=== PATIENT | female | born 1965 | race Caucasian/White ===

== ENCOUNTER 2017-03-22 14:26 | Emergency (ER) | payer MEDICARE | END 2017-03-22 15:30 | disposition home or self-care (01) | LOC: SCSER 14:26 | DX: H57.12 Ocular pain, left eye (principal); G43.909 Migraine, unspecified, not intractable, without status migrainosus; E03.9 Hypothyroidism, unspecified; I10 Essential (primary) hypertension; Z87.442 Personal history of urinary calculi; Z79.899 Other long term (current) drug therapy | CPT/HCPCS: 99283 ==

== ENCOUNTER 2024-04-22 12:57 | Inpatient (IN) | payer SELFPAY ==
[~2024-04-22 12:57] MED LIST: Iopamidol-370 76% 500 ML MDV (1 ML CHARGE) ONE
[2024-04-22] MEDS ORDERED: Midazolam HCl 2 mg/2 ml Vial ONE ×2 (13:17→16:39)
[2024-04-22] MEDS ORDERED: levETIRAcetam 500 MG (5 mL) VIAL ONE (13:17)
[2024-04-22] MEDS ORDERED: Propofol 1,000 MG/100 ML VIAL IV ONE (13:28)
[2024-04-22 13:52] LABS: #Basophils 0.09 10x3/uL (0.0-0.2); %Basophils 0.6 % (0.0-1.0); %Eosinophils 2.5 % (0.0-10.0); %Lymphocytes 59.8 % (21.0-51.0); %Neutrophils 27.8 % (42.0-75.0); Hemoglobin 11.4 g/dL (12.0-16.0); Mean Corpuscular Hemoglobin 28.7 pg (27.0-31.0); Mean Corpuscular Volume 95.7 fL (78.0-98.0); Platelet Count 321 10x3/uL (130-400); RBC Distribution Width 12.5 % (11.5-14.5); Red Blood Cell (RBC) Count 3.97 mill/uL (4.20-5.40)
[2024-04-22] MEDS ORDERED: fentaNYL 50 mcg/mL 1 mL Vial ONE (14:07)
[2024-04-22 14:08] LABS: ALT (SGPT) 7 U/L (Less than 34); AST (SGOT) 22 U/L (11-34); Albumin 3.7 g/dL (3.1-4.5); Alkaline Phosphatase 66 U/L (40-110); Anion Gap 23 mmol/L (10-20); BUN (Urea Nitrogen) 11 mg/dL (9.8-20.1); Bilirubin, Total 0.4 mg/dL (0.3-1.2); CK (CPK) 42 U/L (29-168); Calc. Creatinine Clearance 0 mL/min (70-130); Calcium 8.7 mg/dL (7.8-10.44); Carbon Dioxide 17 mmol/L (22-29); Chloride 106 mmol/L (98-107); Estimated GFR 56; Globulin 4.1 g/dL (2.4-3.5); Glucose 84 mg/dL (70-105); Lipase 20 U/L (8-78); Potassium 3.8 mmol/L (3.5-5.1); Protein, Total 7.8 g/dL (6.0-8.3); Sodium 142 mmol/L (136-145)
[2024-04-22 14:13] LABS: Actual Bicarbonate (HCO3v) 19.5 mEq/L (22-28); Analyzer IN Cardio ER; Base Excess -5.4 mEq/L (-2.0 to +3.0); Calcium, Ionized (venous) 1.06 mmol/L (1.16-1.32); Chloride (VBG) 103 mmol/L (98-106); Hematocrit-VBG 30 % (36.0-47.0); Hemoglobin (Hb) 10.3 g/dL (11.7-16.0); Potassium (VBG) 3.65 mmol/L (3.70-5.30); Sodium 137 mmol/L (133-146); pH (venous) 7.355 (7.32-7.43)
[2024-04-22 14:14] LABS: Troponin I Less than 0.010 ng/mL (< 0.028)
[2024-04-22 14:28] LABS: PTT 30.1 sec (22.9-36.1); Prothrombin Time 13.5 sec (12.0-14.7)
[2024-04-22] MEDS ORDERED: Fentanyl CADD 100 ML IV SCH (14:45)
[2024-04-22 15:33] LABS: Amphetamine Not Detected (NotDetected); Barbiturates Screen Detected (NotDetected); Benzodiazepine Screen Not Detected (NotDetected); Cocaine Metabolite Screen Not Detected (NotDetected); Methadone Not Detected (NotDetected); Methamphetamine Not Detected (NotDetected); Opiate Screen Detected (NotDetected); Oxycodone Screen Not Detected (NotDetected); Phencyclidine (PCP) Detected (NotDetected); THC/Cannabinoid Screen Detected (NotDetected); Tricyclic Screen Detected (NotDetected)
[2024-04-22 15:35] LABS: Bacteria/HPF None Seen HPF (None Seen); Bilirubin Negative (Negative); Blood, Urine Negative (Negative); CAUTI Indications for Culture Alt mental st,lethar; Clarity Clear (Clear); Glucose, Urine (Dipstick) Normal (Negative); Ketone, Urine Negative (Negative); Leukocyte Negative Leu/uL (Negative); Nitrite 2+ (Negative); Protein, Urine (Dipstick) 20 mg/dL (Neg-Trace); RBC/HPF 0-3 HPF (0-3); Squamous Epithelial 0-3 HPF (0-3); Urobilinogen Normal mg/dL (Less than 2); WBC/HPF 0-3 HPF (0-3); pH, Urine 6.5 (5.0-9.0)
[2024-04-22 15:39] LABS: Specific Gravity, Urine Greater than 1.060 (1.002-1.036)
[2024-04-22 15:42] LABS: Urine Culture Reflex No No
[2024-04-22] MEDS ORDERED: cefTRIAXone (ROCEPHIN) 2 GM VIAL ONE (16:08)
[2024-04-22] MEDS ORDERED: Sodium Chloride 0.9% 100 ML ONE (16:08)
[2024-04-22] MEDS ORDERED: Dextrose 5% in Water 1,000 ML IV PRN (16:15)
[2024-04-22] MEDS ORDERED: Ondansetron PF 4 MG/2 ML Vial IVP PRN (16:15)
[2024-04-22] MEDS ORDERED: Dextrose 50% Abboject 50 ML SYRINGE SLOW IVP PRN (16:15)
[2024-04-22] MEDS ORDERED: Glucagon 1 MG/ML KIT IM PRN (16:15)
[2024-04-22] MEDS: Lorazepam 2 MG/ML VIAL SLOW IVP PRN (17:00)
[2024-04-22] MEDS: Sodium Chloride 0.9% 1,000 ML IV SCH ×2 (17:24→18:16)
[2024-04-22] MEDS ORDERED: Propofol 1,000 MG/100 ML VIAL IV PRN (17:30)
[2024-04-22] MEDS ORDERED: Morphine 2 MG/ML VIAL SLOW IVP PRN (17:30)
[2024-04-22] MEDS ORDERED: Propofol BOLUS 1,000 MG/100 ML VIAL IV PRN (17:30)
[2024-04-22] MEDS ORDERED: Fentanyl BOLUS 250 ML IVPB PRN (17:30)
[2024-04-22] MEDS ORDERED: DISCONTINUE PREVIOUS NARCOTIC PAIN MEDICATIONS AND BENZODIAZEPINES FS SCH (17:30)
[2024-04-22 17:36] VITALS: BMI 18.7
[2024-04-22 18:20] LABS: Lactic Acid 2.57 mmol/L (0.50-2.20)
[2024-04-22] MEDS: levETIRAcetam 500 MG (5 mL) VIAL SLOW IVP SCH (21:17)
[2024-04-22 21:44] LABS: Actual Bicarbonate (HCO3a) 18.2 mEq/L (22-28); Base Excess (BEa) -5.4 mEq/L (-2.0 to +3.0); CO2 Tension 28.4 mmHg (35.0-45.0); Calcium, Ionized (arterial) 1.02 mmol/L (1.12-1.30); Carboxyhemoglobin (COHb) 0.4 gm% (0.0-3.0); Hematocrit-ABG 25 % (36.0-47.0); Hemoglobin (Hb) 8.4 g/dL (12.0-16.0); O2 Tension (PaO2), arterial 204.7 mmHg (80.0-100.0); Potassium - ABG Lab 2.98 mmol/L (3.70-5.30); pH, Arterial 7.424 (7.35-7.45)
[2024-04-22 21:45] LABS: Puncture Site Left Radial artery
[2024-04-23] MEDS: Fentanyl CADD 100 ML IV SCH (03:35)
[2024-04-23 05:03] LABS: Anion Gap 12 mmol/L (10-20); BUN (Urea Nitrogen) 9 mg/dL (9.8-20.1); Calc. Creatinine Clearance 75 mL/min (70-130); Carbon Dioxide 14 mmol/L (22-29); Chloride 116 mmol/L (98-107); Estimated GFR 102; Glucose 83 mg/dL (70-105); Sodium 139 mmol/L (136-145)
[2024-04-23 07:28] LABS: #Basophils 0.09 10x3/uL (0.0-0.2); %Basophils 0.6 % (0.0-1.0); %Eosinophils 2.4 % (0.0-10.0); %Lymphocytes 41.6 % (21.0-51.0); %Monocytes 9.7 % (0.0-10.0); %Neutrophils 45.4 % (42.0-75.0); Hematocrit 29.2 % (36.0-47.0); Hemoglobin 8.9 g/dL (12.0-16.0); Mean Corpuscular HGB CONC 30.5 g/dL (32.0-36.0); Mean Corpuscular Hemoglobin 28.8 pg (27.0-31.0); Mean Corpuscular Volume 94.5 fL (78.0-98.0); Mean Platelet Volume 10.2 fL (7.4-10.4); Platelet Count 246 10x3/uL (130-400); RBC Distribution Width 12.9 % (11.5-14.5); Red Blood Cell (RBC) Count 3.09 mill/uL (4.20-5.40)
[2024-04-23 07:41] LABS: Anion Gap 14 mmol/L (10-20); BUN (Urea Nitrogen) 9 mg/dL (9.8-20.1); Calc. Creatinine Clearance 61 mL/min (70-130); Carbon Dioxide 14 mmol/L (22-29); Chloride 116 mmol/L (98-107); Estimated GFR 87; Glucose 94 mg/dL (70-105); Potassium 3.3 mmol/L (3.5-5.1); Sodium 141 mmol/L (136-145)
[2024-04-23 11:13] VITALS: BMI 18.7
[2024-04-23] MEDS: Lactated Ringer's 1,000 ML IV SCH (11:57)
[2024-04-23] MEDS: Lacosamide 50 MG in Sodium Chloride 0.9% 50 ML IVPB SCH (12:18)
[2024-04-24] MEDS ORDERED: Sterile Water 10 ML VIAL FS PRN (10:00)
[2024-04-24] MEDS: OLANZapine 10 MG VIAL IM SCH (10:22)
[2024-04-24] MEDS ORDERED: Lorazepam 1 MG TAB PO PRN (15:05)
[2024-04-24] MEDS ORDERED: Ondansetron ODT 4 MG TAB PO PRN (15:05)
[2024-04-24] MEDS ORDERED: Electrolyte Replacement Protocol 1 EACH FS SCH (15:15)
[2024-04-24] MEDS: Lorazepam 1 MG TAB PO SCH (15:15)
[2024-04-24] MEDS: Lorazepam 2 MG/ML VIAL IM SCH (15:15)
[2024-04-24] MEDS ORDERED: Electrolyte Replacement Protocol FS PRN (15:30)
[2024-04-24] MEDS: Lorazepam 2 MG/ML VIAL IM PRN (15:56)
[2024-04-24] MEDS: CALCIUM GLUC 1 GM/NS 50 ML 1 GM in Premix 1 BAG IVPB SCH (15:59)
[2024-04-24] MEDS: Thiamine HCl 200 MG/2 ML VIAL SLOW IVP SCH (16:01)
[2024-04-24] MEDS: Magnesium Oxide 400 MG TAB PO SCH (18:00)
[2024-04-24] MEDS: Folic Acid 1 MG TAB PO SCH (18:00)
[2024-04-24] MEDS: Potassium Chloride 20 MEQ TAB PO SCH (18:00)
[2024-04-24] MEDS: Multivit, Therapeutic 1 TAB PO SCH (19:20)
[2024-04-24] MEDS ORDERED: Lorazepam 2 MG/ML VIAL SLOW IVP PRN (20:31)
[2024-04-24] MEDS ORDERED: hydrALAZINE 20 MG/ML VIAL SLOW IVP PRN (20:32)
[2024-04-24] MEDS: Lorazepam 2 MG/ML VIAL SLOW IVP SCH (20:55)
[2024-04-24] MEDS: Magnesium 2 GM/50 ML(in water) 2 GM in Premix 1 BAG IVPB SCH (20:56)
[2024-04-25] MEDS: Ziprasidone 20 MG VIAL IM SCH (00:03)
[2024-04-25] MEDS: Sterile Water 10 ML VIAL FS PRN (00:03)
[2024-04-25 03:57] LABS: #Basophils 0.04 10x3/uL (0.0-0.2); %Basophils 0.4 % (0.0-1.0); %Eosinophils 1.1 % (0.0-10.0); %Lymphocytes 22.4 % (21.0-51.0); %Monocytes 13.1 % (0.0-10.0); %Neutrophils 62.5 % (42.0-75.0); Hematocrit 28.9 % (36.0-47.0); Hemoglobin 8.8 g/dL (12.0-16.0); Mean Corpuscular HGB CONC 30.4 g/dL (32.0-36.0); Mean Corpuscular Hemoglobin 28.9 pg (27.0-31.0); Mean Corpuscular Volume 95.1 fL (78.0-98.0); Platelet Count 162 10x3/uL (130-400); RBC Distribution Width 12.8 % (11.5-14.5); Red Blood Cell (RBC) Count 3.04 mill/uL (4.20-5.40)
[2024-04-25 04:07] LABS: Lactic Acid 1.29 mmol/L (0.50-2.20)
[2024-04-25 04:19] LABS: Anion Gap 17 mmol/L (10-20); BUN (Urea Nitrogen) 4 mg/dL (9.8-20.1); Calc. Creatinine Clearance 70 mL/min (70-130); Calcium 8.2 mg/dL (7.8-10.44); Carbon Dioxide 8 mmol/L (22-29); Chloride 116 mmol/L (98-107); Estimated GFR 101; Glucose 76 mg/dL (70-105); Potassium 3.2 mmol/L (3.5-5.1); Sodium 138 mmol/L (136-145)
[2024-04-25] MEDS: Lorazepam 2 MG/ML VIAL IM SCH (05:32)
[2024-04-25] MEDS: Sodium Bicarbonate 150 MEQ in Sterile Water 1,000 ML IV SCH (05:38)
[2024-04-25] MEDS: Lacosamide 50 MG in Sodium Chloride 0.9% 50 ML IVPB SCH (07:55)
[2024-04-25] MEDS: Folic Acid 1 MG TAB PO SCH (08:47)
[2024-04-25] MEDS: Multivit, Therapeutic 1 TAB PO SCH (08:47)
[2024-04-25] MEDS: Potassium Chloride 20 MEQ in Premix 1 BAG IVPB SCH (10:55)
[2024-04-25 14:11] LABS: Lactic Acid 0.97 mmol/L (0.50-2.20)
[2024-04-25] MEDS: OLANZapine 10 MG VIAL IM SCH (18:04)
[2024-04-26] MEDS: Lorazepam 2 MG/ML VIAL SLOW IVP PRN (01:14)
[2024-04-26 04:16] LABS: #Basophils 0.04 10x3/uL (0.0-0.2); %Basophils 0.6 % (0.0-1.0); %Eosinophils 3.5 % (0.0-10.0); %Lymphocytes 26.5 % (21.0-51.0); %Monocytes 9.3 % (0.0-10.0); %Neutrophils 59.7 % (42.0-75.0); Hematocrit 28.6 % (36.0-47.0); Hemoglobin 9.4 g/dL (12.0-16.0); Mean Corpuscular HGB CONC 32.9 g/dL (32.0-36.0); Mean Corpuscular Volume 88.3 fL (78.0-98.0); Mean Platelet Volume 10.2 fL (7.4-10.4); Platelet Count 195 10x3/uL (130-400); RBC Distribution Width 12.9 % (11.5-14.5); Red Blood Cell (RBC) Count 3.24 mill/uL (4.20-5.40)
[2024-04-26 04:33] LABS: Anion Gap 20 mmol/L (10-20); BUN (Urea Nitrogen) Less than 4 mg/dL (9.8-20.1); Calc. Creatinine Clearance 75 mL/min (70-130); Calcium 8.2 mg/dL (7.8-10.44); Carbon Dioxide 11 mmol/L (22-29); Chloride 112 mmol/L (98-107); Estimated GFR 102; Glucose 78 mg/dL (70-105); Potassium 2.6 mmol/L (3.5-5.1); Sodium 140 mmol/L (136-145)
[2024-04-26] MEDS ORDERED: Potassium Chloride 20 MEQ TAB PO SCH (06:30)
[2024-04-26] MEDS: Potassium Chloride 20 MEQ in Premix 1 BAG IVPB SCH (06:54)
[2024-04-26] MEDS: FLU (Fluarix Triv) TS24-25(6MOS UP)/PF 45 MCG/0.5 ML Syringe IM ONE (08:02)
[2024-04-26] MEDS: Ketorolac Tromethamine 30 MG (1 mL) VIAL IVP SCH (11:42)
[2024-04-26] MEDS: Potassium Phosphate 30 MMOL in Sodium Chloride 0.9% 500 ML IVPB SCH (14:36)
[2024-04-26] MEDS: Lorazepam 0.5 MG TAB PO SCH (14:37)
[2024-04-26] MEDS: Acetaminophen 325 MG TAB PO PRN (14:37)
[2024-04-26] MEDS ORDERED: Lorazepam 1 MG TAB PO PRN (15:05)
[2024-04-26 19:19] LABS: Anion Gap 17 mmol/L (10-20); BUN (Urea Nitrogen) Less than 4 mg/dL (9.8-20.1); Calc. Creatinine Clearance 74 mL/min (70-130); Calcium 8.1 mg/dL (7.8-10.44); Carbon Dioxide 12 mmol/L (22-29); Chloride 118 mmol/L (98-107); Estimated GFR 102; Glucose 96 mg/dL (70-105); Phosphorus 2.1 mg/dL (2.5-4.5); Potassium 3.6 mmol/L (3.5-5.1); Sodium 143 mmol/L (136-145)
[2024-04-26] MEDS: Lacosamide 50 mg Tablet PO SCH (22:01)
[2024-04-27 04:25] LABS: #Basophils 0.04 10x3/uL (0.0-0.2); %Basophils 0.8 % (0.0-1.0); %Eosinophils 4.5 % (0.0-10.0); %Lymphocytes 34.8 % (21.0-51.0); %Monocytes 11.1 % (0.0-10.0); %Neutrophils 48.4 % (42.0-75.0); Hematocrit 28.7 % (36.0-47.0); Hemoglobin 9.6 g/dL (12.0-16.0); Mean Corpuscular HGB CONC 33.4 g/dL (32.0-36.0); Mean Corpuscular Hemoglobin 29.4 pg (27.0-31.0); Mean Corpuscular Volume 87.8 fL (78.0-98.0); Mean Platelet Volume 9.8 fL (7.4-10.4); Platelet Count 190 10x3/uL (130-400); Red Blood Cell (RBC) Count 3.27 mill/uL (4.20-5.40)
[2024-04-27 04:39] LABS: Anion Gap 14 mmol/L (10-20); BUN (Urea Nitrogen) Less than 4 mg/dL (9.8-20.1); Calc. Creatinine Clearance 77 mL/min (70-130); Calcium 8.1 mg/dL (7.8-10.44); Carbon Dioxide 13 mmol/L (22-29); Chloride 117 mmol/L (98-107); Estimated GFR 103; Glucose 106 mg/dL (70-105); Potassium 3.3 mmol/L (3.5-5.1); Sodium 141 mmol/L (136-145)
[2024-04-27] MEDS: Potassium Chloride 20 MEQ TAB PO SCH ×2 (08:21→11:03)
[2024-04-27 13:10] LABS: Phosphorus 1.6 mg/dL (2.5-4.5)
[2024-04-27] MEDS ORDERED: Lorazepam 0.5 MG TAB PO PRN (15:05)
[2024-04-27] MEDS: Thiamine 100 MG TAB PO SCH (15:05)
[2024-04-27] MEDS: Potassium Phosphate 30 MMOL in Sodium Chloride 0.9% 500 ML IVPB SCH (15:05)
[2024-04-28 04:58] LABS: #Basophils 0.04 10x3/uL (0.0-0.2); %Basophils 0.7 % (0.0-1.0); %Eosinophils 2.8 % (0.0-10.0); %Lymphocytes 36.7 % (21.0-51.0); %Monocytes 11.9 % (0.0-10.0); %Neutrophils 47.5 % (42.0-75.0); Hematocrit 27.5 % (36.0-47.0); Hemoglobin 9.5 g/dL (12.0-16.0); Mean Corpuscular HGB CONC 34.5 g/dL (32.0-36.0); Mean Corpuscular Hemoglobin 29.7 pg (27.0-31.0); Mean Corpuscular Volume 85.9 fL (78.0-98.0); Mean Platelet Volume 10.1 fL (7.4-10.4); Platelet Count 227 10x3/uL (130-400); RBC Distribution Width 13.5 % (11.5-14.5)
[2024-04-28 05:15] LABS: Anion Gap 16 mmol/L (10-20); BUN (Urea Nitrogen) Less than 4 mg/dL (9.8-20.1); Calc. Creatinine Clearance 77 mL/min (70-130); Calcium 8.2 mg/dL (7.8-10.44); Carbon Dioxide 15 mmol/L (22-29); Chloride 117 mmol/L (98-107); Estimated GFR 103; Glucose 96 mg/dL (70-105); Potassium 3.2 mmol/L (3.5-5.1); Sodium 145 mmol/L (136-145)
[2024-04-28 05:27] LABS: Phosphorus 4.1 mg/dL (2.5-4.5)
[2024-04-28] MEDS: Potassium Chloride 20 MEQ TAB PO SCH ×2 (10:09→13:21)
[2024-04-28] MEDS: Fioricet 325/50/40 mg Tablet PO SCH (17:18)
[2024-04-29 04:26] LABS: #Basophils 0.04 10x3/uL (0.0-0.2); %Basophils 0.7 % (0.0-1.0); %Eosinophils 4.1 % (0.0-10.0); %Lymphocytes 37.4 % (21.0-51.0); %Monocytes 11.7 % (0.0-10.0); %Neutrophils 45.7 % (42.0-75.0); Hematocrit 30.6 % (36.0-47.0); Hemoglobin 10.1 g/dL (12.0-16.0); Mean Corpuscular Hemoglobin 28.9 pg (27.0-31.0); Mean Corpuscular Volume 87.4 fL (78.0-98.0); Mean Platelet Volume 9.7 fL (7.4-10.4); Platelet Count 231 10x3/uL (130-400); RBC Distribution Width 14.1 % (11.5-14.5)
[2024-04-29 04:44] LABS: Anion Gap 16 mmol/L (10-20); BUN (Urea Nitrogen) Less than 4 mg/dL (9.8-20.1); Calc. Creatinine Clearance 76 mL/min (70-130); Calcium 8.2 mg/dL (7.8-10.44); Carbon Dioxide 19 mmol/L (22-29); Chloride 114 mmol/L (98-107); Estimated GFR 103; Glucose 100 mg/dL (70-105); Potassium 3.9 mmol/L (3.5-5.1); Sodium 145 mmol/L (136-145)
[2024-04-29 10:54] VITALS: BP 148/86; TEMP 98.8
== END 2024-04-29 15:00 | disposition home or self-care (01) | DRG 917 ==
LOC: ERS 12:57 → CCU 14:34 → UNDOADMIN 14:34 → 2SE 04-23 18:34
PROVIDERS: ADMIT Family Medicine; ATTEND Internal Medicine
PROC: XX20X89 Monitoring of Brain Electrical Activity, Computer-aided Detection and Notification, New Technology Group 9 (ICD-10-PCS; principal; 2024-04-22)
PROC: 5A1935Z Respiratory Ventilation, Less than 24 Consecutive Hours (ICD-10-PCS; 2024-04-22)
PROC: 4A033R1 Measurement of Arterial Saturation, Peripheral, Percutaneous Approach (ICD-10-PCS; 2024-04-23)
DX: T40.601A Poisoning by unspecified narcotics, accidental (unintentional), initial encounter (principal); G93.41 Metabolic encephalopathy; J96.01 Acute respiratory failure with hypoxia; E87.20 Acidosis, unspecified; F19.139 Other psychoactive substance abuse with withdrawal, unspecified; F05 Delirium due to known physiological condition; G40.909 Epilepsy, unspecified, not intractable, without status epilepticus; G43.909 Migraine, unspecified, not intractable, without status migrainosus; E03.9 Hypothyroidism, unspecified; I12.9 Hypertensive chronic kidney disease with stage 1 through stage 4 chronic kidney disease, or unspecified chronic kidney disease; G89.29 Other chronic pain; M54.9 Dorsalgia, unspecified; Z78.1 Physical restraint status; F43.10 Post-traumatic stress disorder, unspecified; E87.6 Hypokalemia; E83.39 Other disorders of phosphorus metabolism; W18.09XA Striking against other object with subsequent fall, initial encounter; R29.6 Repeated falls; S02.2XXA Fracture of nasal bones, initial encounter for closed fracture; D72.829 Elevated white blood cell count, unspecified; Z91.041 Radiographic dye allergy status; Z91.011 Allergy to milk products; Z90.710 Acquired absence of both cervix and uterus; Z79.899 Other long term (current) drug therapy; Z87.820 Personal history of traumatic brain injury; T75.89XA Other specified effects of external causes, initial encounter
CPT/HCPCS: 36415; 36600; 70450; 70486; 70496; 70498; 70551; 71045; 72125; 76376; 80048; 80053; 80306; 81001; 82010; 82550; 82805; 83605; 83690; 84100; 84146; 84484; 85025; 85610; 85730; 86850; 86900; 86901; 93005; 94002; 94003; 96361; 96365; 96366; 96368; 96375; 96376; A4217; C9254; J0613; J0696; J1885; J1953; J2060; J2250; J2704; J3010; J3411; J3475; J3480; J3486; J7030; J7120; Q9967